=== PATIENT | male | born 1980 | race Caucasian/White ===

== ENCOUNTER 2021-10-14 12:44 | Observation (INO) | payer OTHER ==
[2021-10-14] MEDS ORDERED: Sodium Chloride 0.9% 1,000 ML IV ONE ×2 (13:04→15:16)
[2021-10-14] MEDS ORDERED: Sodium Chloride 0.9% 10 ML Syringe FLUSH PRN (13:04)
[2021-10-14] MEDS ORDERED: Sodium Chloride 0.9% 2.5 ML Syringe FLUSH PRN (13:04)
[2021-10-14 15:13] LABS: BLOOD UREA NITROGEN,BUN 36 mg/dL (7.0-18.0); CARBON DIOXIDE,CO2 28.4 mmol/L (21.0-32.0); CHLORIDE,CL 100 mmol/L (98-107); ESTIMATED GFR 42 mL/min (>60); GLUCOSE RANDOM 92 mg/dL (74-106); POTASSIUM,K 4.6 mmol/L (3.5-5.1); SODIUM,NA 138 mmol/L (136-148)
[2021-10-14] MEDS ORDERED: Ketorolac 30 MG/ML SDV IVPUSH ONE (15:22)
[2021-10-14] MEDS ORDERED: Albuterol/Ipratropium 3.0-0.5 MG/3 ML Neb Soln NEB PRN (17:02)
[2021-10-14] MEDS ORDERED: Ondansetron 4 MG/2 ML SDV IVPUSH PRN (17:02)
[2021-10-14] MEDS ORDERED: Sodium Chloride 0.9% 1,000 ML IV SCH (17:15)
[2021-10-14] MEDS ORDERED: Acetaminophen 325 MG Tab PO PRN (18:25)
[2021-10-14] MEDS: Lactated Ringers 1,000 ML IV SCH ×2 (18:25→23:29)
[2021-10-14] MEDS ORDERED: diphenhydrAMINE 50 MG Cap PO PRN (19:43)
[2021-10-15] MEDS: Lactated Ringers 1,000 ML IV SCH ×2 (04:29→09:25)
[2021-10-15 07:45] LABS: CARBON DIOXIDE,CO2 31.2 mmol/L (21.0-32.0); POTASSIUM,K 4.9 mmol/L (3.5-5.1)
[2021-10-15] MEDS: Phosphorus #1 250 MG Tab PO SCH ×2 (08:50→11:24)
[2021-10-15] MEDS ORDERED: Magnesium Oxide 400 MG Tab PO SCH (09:00)
[2021-10-15] MEDS ORDERED: Lactated Ringers 500 ML IV SCH (09:45)
[2021-10-15] MEDS ORDERED: Lactated Ringers 500 ML IV ONE ×2 (10:15→12:15)
== END 2021-10-15 12:45 | disposition home or self-care (01) ==
LOC: MW.ED 12:44 → MW.MS 15:22
PROVIDERS: ADMIT Student in an Organized Health Care Education/Training Program; ATTEND Student in an Organized Health Care Education/Training Program
DX: M62.82 Rhabdomyolysis (principal); N17.9 Acute kidney failure, unspecified; I10 Essential (primary) hypertension; F90.9 Attention-deficit hyperactivity disorder, unspecified type; F15.90 Other stimulant use, unspecified, uncomplicated; B17.9 Acute viral hepatitis, unspecified; R74.01 Elevation of levels of liver transaminase levels; Z87.891 Personal history of nicotine dependence; Z20.822 Contact with and (suspected) exposure to COVID-19; Z79.891 Long term (current) use of opiate analgesic; Z79.899 Other long term (current) drug therapy
CPT/HCPCS: 36415; 80053; 80061; 80305; 81001; 82550; 83605; 83735; 84100; 85025; 87635; 96361; 96374; 99285; A9270; G0378; J1885; J3490; J7030; J7120; 99217; 99219; 99284; U0002

== ENCOUNTER 2021-10-17 19:02 | Emergency (ER) | payer OTHER ==
[2021-10-17] MEDS ORDERED: Sodium Chloride 0.9% 1,000 ML IV ONE ×2 (19:29→19:40)
== END 2021-10-17 20:37 | disposition home or self-care (01) ==
LOC: MW.ED 19:02
DX: M62.82 Rhabdomyolysis (principal); I10 Essential (primary) hypertension; Z79.899 Other long term (current) drug therapy
CPT/HCPCS: 96360; 99284; J7030